=== PATIENT | female | born 1950 | race Two or more races ===

== ENCOUNTER 2020-01-17 06:46 | Day surgery (SDC) | payer OTHER ==
[~2020-01-17 06:46] MED LIST: CHILDREN'S ASPI81 MG PO; NORVASC5 MG PO; ZESTRIL20 MG PO
[2020-01-17] MEDS ORDERED: PERCOCET 5-3251 EACH PO (12:30)
== END 2020-01-17 16:30 | disposition home or self-care (01) ==
LOC: CIR.AMB 06:46
PROVIDERS: ATTEND Surgery
DX: K80.10 Calculus of gallbladder with chronic cholecystitis without obstruction (principal); Z20.828 Contact with and (suspected) exposure to other viral communicable diseases